=== PATIENT | female | born 1980 | race American Indian/Alaskan Native ===

== ENCOUNTER 2017-09-22 10:37 | Observation (INO) | payer MEDICARE ==
[2017-09-22 10:48] VITALS: BMI 18.4
[2017-09-22] MEDS ORDERED: Sodium Chloride 0.9% 1,000 ML IV STA ×2 (11:10→15:49)
--- NOTE | 2017-09-22 11:32 | RAD ---
HISTORY: abd pain AMS COMPARISON: No prior. FINDINGS: LUNGS: The lungs are clear. PLEURA: No significant pleural effusion identified, no pneumothorax apparent. CARDIOVASCULAR: Normal. OSSEOUS STRUCTURES: No significant abnormalities. VISUALIZED UPPER ABDOMEN: Normal. OTHER FINDINGS: None. IMPRESSION: No active disease.
[2017-09-22 12:45] LABS: BASO % 0.2 % (0.0-2.0); HEMOGLOBIN 12.1 g/dL (12.0-16.0); LYMPH # 0.7 K/uL (1.0-4.3); LYMPH % 4.1 % (20.0-40.0); MEAN CELL VOLUME 78.4 fl (81.0-99.0); MEAN CORPUSCULAR HEMOGLOBIN 25.2 pg (27.0-31.0); MEAN CORPUSCULAR HGB CONC 32.2 g/dL (33.0-37.0); MONO # 0.5 K/uL (0.0-0.8); NEUT # 16.4 K/uL (1.8-7.0); NEUT % 92.7 % (50.0-75.0); PLATELET COUNT 391 K/uL (130-400); RBC 4.78 Mil/uL (3.80-5.20); RED CELL DISTRIBUTION WIDTH 15.2 % (11.5-14.5); WHITE BLOOD COUNT 17.7 K/uL (4.8-10.8)
[2017-09-22 14:00] LABS: BASOPHIL 1 % (0-2); LYMPHOCYTE 6 % (20-50); MONOCYTE 2 % (0-10); NEUTROPHIL 91 % (42-75); TOTAL CELLS COUNTED 100
[2017-09-22 14:01] LABS: ANISOCYTOSIS SLIGHT; PLATELET ESTIMATE NORMAL (NORMAL)
[2017-09-22 14:02] LABS: OVALOCYTES SLIGHT; TEARDROP CELLS SLIGHT
[2017-09-22 14:04] LABS: INR 1.2 (0.9-1.2); PARTIAL THROMBOPLASTIN TIME 29.6 Seconds (25.6-37.1); PROTHROMBIN TIME 13.2 Seconds (9.8-13.1)
[2017-09-22 14:11] LABS: ALB/GLOB RATIO 1.3 (1.0-2.1); ALBUMIN 4.4 g/dL (3.5-5.0); ALT/SGPT 26 U/L (9-52); AST/SGOT 28 U/L (14-36); BLOOD UREA NITROGEN 7 mg/dl (7-17); CALCIUM 9.1 mg/dL (8.4-10.2); GFR AFRICAN-AMERICAN > 60; GFR NON-AFRICAN AMERICAN > 60
[2017-09-22] MEDS ORDERED: Sodium Chloride 0.9% 50 ML IV ONE (14:47)
[2017-09-22] MEDS ORDERED: Iohexol 300 100 ML IJ ONE (14:47)
--- NOTE | 2017-09-22 15:29 | ED PDOC ---
HPI: Abdomen Time Seen by Provider: 09/22/17 11:03 Chief Complaint (Nursing): Abdominal Pain Chief Complaint (Provider): Abdominal pain History Per: Family (Mother) History/Exam Limitations: no limitations Onset/Duration Of Symptoms: Days (1) Additional Complaint(s): Patient is a 36 y/o female with a past medical history of moderate mental retardation and diabetes presenting to the emergency department with her mother for abdominal pain and an episode of incontinent stool since yesterday. Per mother who is also her caregiver, patient was also noted to appear weak today and has a depressed appetite. Denies fever, vomiting, or other complaints. Of note, patient is able to toilet and feed herself but is otherwise dependent on her mother. Despite history of diabetes, patient is not currently on any medication. PCP: John Diana Past Medical History Reviewed: Historical Data, Nursing Documentation, Vital Signs Vital Signs: Last Vital Signs Temp 97.1 F L 09/23/17 07:54 Pulse 83 09/23/17 07:54 Resp 18 09/23/17 07:54 BP 100/66 09/23/17 07:54 Pulse Ox 100 09/23/17 07:54 - Medical History PMH: Diabetes Other PMH: mental retardation - Surgical History Surgical History: No Surg Hx - Family History Family History: States: Unknown Family Hx - Living Arrangements Living Arrangements: With Family (Mother) - Social History Current smoker - smoking cessation education provided: No Ex-Smoker (has not smoked in the last 12 months): No Alcohol: None Drugs: Denies - Home Medications Home Medications: Ambulatory Orders Medication Instructions Recorded Multivitamin/Iron/Folic Acid 1 tab PO DAILY 09/22/17 [Centrum Complete Multivit Tab] oxyCODONE/Acetaminophen [Percocet 1 tab PO Q4 PRN #30 tab 09/23/17 5/325 mg Tab] - Allergies Allergies/Adverse Reactions: Allergies Allergy/AdvReac Type Severity Reaction Status Date / Time No Known Allergies Allergy Verified 09/22/17 17:07 Review of Systems ROS Statement: Except As Marked, All Systems Reviewed And Found Negative Constitutional: Positive for: Weakness, Other (depressed appetite). Negative for: Fever Gastrointestinal: Positive for: Abdominal Pain. Negative for: Vomiting Physical Exam - Reviewed Nursing Documentation Reviewed: Yes Vital Signs Reviewed: Yes - Physical Exam Appears: Positive for: Uncomfortable (listless, arousable, and mildly dry- appearing) Head Exam: Positive for: ATRAUMATIC, NORMAL INSPECTION, NORMOCEPHALIC Skin: Positive for: Normal Color, Warm, Dry Eye Exam: Positive for: Normal appearance Neck: Positive for: Normal Cardiovascular/Chest: Positive for: Regular Rate, Rhythm. Negative for: Murmur Respiratory: Positive for: Normal Breath Sounds. Negative for: Accessory Muscle Use, Respiratory Distress Gastrointestinal/Abdominal: Positive for: Soft, Tenderness (diffuse abdominal tenderness) Extremity: Positive for: Normal ROM. Negative for: Pedal Edema Neurologic/Psych: Positive for: Other (neurologically developmentally delayed but does follow commands.) - Laboratory Results Result Diagrams: 09/22/17 12:30 09/22/17 13:36 - ECG O2 Sat by Pulse Oximetry: 100 (RA) Pulse Ox Interpretation: Normal Medical Decision Making Medical Decision Making: Time: 11:10 Initial impression: Abdominal pain Initial plan: CT abdominal/pelvic with IV contrast Urine drug screening ED Urine Dipstick ED Urine Normal Saline 1 L IV Urinalysis Reevaluation 11:31 Chest x-ray reviewed. Findings noted as follows: LUNGS: The lungs are clear. PLEURA: No significant pleural effusion identified, no pneumothorax apparent. CARDIOVASCULAR: Normal. OSSEOUS STRUCTURES: No significant abnormalities. VISUALIZED UPPER ABDOMEN: Normal. OTHER FINDINGS: None. IMPRESSION: No active disease. 15:29 Abdominal/pelvic CT scan reveals acute appendicitis. Other findings noted as follows: LOWER THORAX: The lung bases are clear. LIVER: Normal in size with diffuse fatty infiltration. No gross lesion or ductal dilatation. GALLBLADDER AND BILE DUCTS: There are no calcified gallstones. PANCREAS: Normal in size with homogeneous enhancement. No gross lesion or ductal dilatation. SPLEEN: Normal in size and appearance. ADRENALS: No discrete nodule. KIDNEYS AND URETERS: Normal in size with homogeneous enhancement. No hydronephrosis. No solid mass. VASCULATURE: Unremarkable. No aortic aneurysm. BOWEL: The small bowel loops are normal in caliber. There is large amount of stool in the colon. No bowel dilatation or obstruction. APPENDIX: The appendix is distended fluid-filled and measures 12 mm in diameter, there is an appendicolith in the mid appendix and mild wall enhancement with inflammatory changes in the surrounding right lower quadrant fat. No evidence of perforation or abscess. PERITONEUM: No free fluid. No free air. LYMPH NODES: No enlarged lymph nodes. BLADDER: Well distended and normal in appearance. REPRODUCTIVE: The uterus is normal in size and there is fluid in the endometrial cavity. There is a 2.8 cm simple cyst in the left ovary. BONES: No acute fracture. Within normal limits for the patient's age. OTHER FINDINGS: None. IMPRESSION: Acute appendicitis. No perforation or abscess. Constipation. No evidence of bowel obstruction. Fatty liver. 15:[address] Velázquez (Medicine) who agrees to admit patient. 15:50 Spoke with the certified surgical technician and attending Dr. Wild. Family was also updated in regards to diagnosis and plan of care. Admit to medicine, for OR soon. Abx initiated. Scribe Attestation: Documented by Ly Dubose, acting as a scribe for Del Montiel DO. Provider Scribe Attestation: All medical record entries made by the Scribe were at my direction and personally dictated by me. I have reviewed the chart and agree that the record accurately reflects my personal performance of the history, physical exam, medical decision making, and the department course for this patient. I have also personally directed, reviewed, and agree with the discharge instructions and disposition. Disposition - Clinical Impression Clinical Impression: Acute appendicitis - Patient ED Disposition Is Patient to be Admitted: Yes - Disposition Disposition Time: 14:30 Condition: GUARDED - Pt Status Changed To: Hospital Disposition Of: Inpatient (history of mental retardation in addition to acute appendicitis- anticipate longer hospital stay) - Admit Certification Admit to Inpatient:: After my assessment, the patient will require hospitalization for at least two midnights. This is because of the severity of symptoms shown, intensity of services needed, and/or the medical risk in this patient being treated as an outpatient.
--- NOTE | 2017-09-22 15:31 | CT ---
PROCEDURE: CT Abdomen and Pelvis with contrast HISTORY: Abdominal pain COMPARISON: None. TECHNIQUE: CT scan of the abdomen and pelvis was performed after intravenous administration of contrast. Oral contrast was not administered. Coronal and sagittal reformatted images were obtained. Contrast dose: 95 cc Omnipaque 300 Radiation dose: Total exam DLP = 351.77 mGy-cm. This CT exam was performed using one or more of the following dose reduction techniques: Automated exposure control, adjustment of the mA and/or kV according to patient size, and/or use of iterative reconstruction technique. FINDINGS: LOWER THORAX: The lung bases are clear. LIVER: Normal in size with diffuse fatty infiltration. No gross lesion or ductal dilatation. GALLBLADDER AND BILE DUCTS: There are no calcified gallstones. PANCREAS: Normal in size with homogeneous enhancement. No gross lesion or ductal dilatation. SPLEEN: Normal in size and appearance. ADRENALS: No discrete nodule. KIDNEYS AND URETERS: Normal in size with homogeneous enhancement. No hydronephrosis. No solid mass. VASCULATURE: Unremarkable. No aortic aneurysm. BOWEL: The small bowel loops are normal in caliber. There is large amount of stool in the colon. No bowel dilatation or obstruction. APPENDIX: The appendix is distended fluid-filled and measures 12 mm in diameter, there is an appendicolith in the mid appendix and mild wall enhancement with inflammatory changes in the surrounding right lower quadrant fat. No evidence of perforation or abscess. PERITONEUM: No free fluid. No free air. LYMPH NODES: No enlarged lymph nodes. BLADDER: Well distended and normal in appearance. REPRODUCTIVE: The uterus is normal in size and there is fluid in the endometrial cavity. There is a 2.8 cm simple cyst in the left ovary. BONES: No acute fracture. Within normal limits for the patient's age. OTHER FINDINGS: None. IMPRESSION: Acute appendicitis. No perforation or abscess. Constipation. No evidence of bowel obstruction. Fatty liver.
[2017-09-22] MEDS ORDERED: Piperacillin/Tazobact 3.375 GM in Sodium Chloride 0.9% 100 ML IVPB STA (15:39)
[2017-09-22] MEDS ORDERED: Propofol 10 mg/ml Inj (20 ML) ONE (16:31)
[2017-09-22] MEDS ORDERED: Midazolam 2 MG/2 ML VIAL ONE (16:31)
[2017-09-22] MEDS ORDERED: Succinylcholine 200 mg/10 ml Inj IV ONE (16:32)
[2017-09-22] MEDS ORDERED: Neostigmine Methylsulfate 2 MG/2 ML ML IV ONE (16:33)
[2017-09-22] MEDS ORDERED: Lidocaine 4% (Laryng-O-Jet) Kit MM ONE (16:33)
[2017-09-22] MEDS ORDERED: Rocuronium 10 mg/ml (5 ml) ONE (16:34)
[2017-09-22] MEDS ORDERED: Bupivacaine 0.5% Inj(30mL) ONE (16:52)
[2017-09-22] MEDS ORDERED: Lidocaine 1% Inj (20ml) ONE (16:52)
[2017-09-22] MEDS ORDERED: ceFAZolin IV 1 gm in Dextrose 0 GM/0 ML BAG IVPB ONE (16:52)
--- NOTE | 2017-09-22 17:47 | CP.PCM.CON ---
History of Present Illness - History of Present Illness History of Present Illness: General Surgery Dr. Wild 36 y/o F w/ PMHx of MR and NIDDM 2 presents to the ED c/o abd pain. Per mother present at bedside, woke up this AM w/ diffuse abd pain. Pt took some Pepto bismol in an attempt to relieve pain. Shortly after, pt developed NBNB vomiting. Mother brought pt to the ED when pain continued to worsen. Mother admits to pt fatigue and decreased appetite. Mother denies F/C, D/C. CT abd/ pelivs taken while pt in the ED revealed acute appendicitis. The pt is able to toilet and feed herself but is otherwise dependent on her mother. Pt mother is the legal caregiver. PMHx: NIDDM2 Meds: multivitamin NKDA PSHx: denies SHx: denies tobacco, EtOH, drug use. FHx: denies Review of Systems - Review of Systems Systems not reviewed;Unavailable: Other (MR, refused to answer questions) Past Patient History - Past Medical History & Family History Past Medical History?: Yes - Past Social History Alcohol: None Drugs: Denies - ENDOCRINE/METABOLIC Hx Diabetes Mellitus Type 2: Yes - PSYCHIATRIC Hx Substance Use: No - SURGICAL HISTORY Hx Surgeries: No - ANESTHESIA Hx Anesthesia: No Meds Allergies/Adverse Reactions: Allergies Allergy/AdvReac Type Severity Reaction Status Date / Time No Known Allergies Allergy Verified 09/22/17 17:07 - Medications Medications: Current Medications Sodium Chloride (Sodium Chloride 0.9%) 1,000 mls @ 150 mls/hr IV .Q6H40M STA Stop: 09/22/17 22:28 Last Admin: 09/22/17 16:00 Dose: 150 mls/hr Physical Exam - Constitutional Appears: No Acute Distress, Other (uncomfortable) - Head Exam Head Exam: NORMAL INSPECTION - Eye Exam Eye Exam: Normal appearance - ENT Exam ENT Exam: Mucous Membranes Moist - Respiratory Exam Respiratory Exam: NORMAL BREATHING PATTERN. absent: Accessory Muscle Use, Respiratory Distress - Cardiovascular Exam Cardiovascular Exam: absent: Bradycardia, Tachycardia - GI/Abdominal Exam GI & Abdominal Exam: Soft, Tenderness. absent: Distended, Guarding, Rebound, Rigid - Expanded GI/Abdominal Exam Expanded Expanded GI & Abdominal Exam: Rovsing's Sign - Extremities Exam Extremities exam: Positive for: normal inspection - Neurological Exam Neurological exam: Alert - Psychiatric Exam Psychiatric exam: Normal Affect, Normal Mood - Skin Skin Exam: Dry, Intact, Normal Color, Warm Results - Vital Signs Recent Vital Signs: Last Vital Signs Temp 99 F 09/22/17 17:07 Pulse 107 H 09/22/17 17:07 Resp 14 09/22/17 17:07 BP 107/62 09/22/17 17:07 Pulse Ox 100 09/22/17 17:07 - Labs Result Diagrams: 09/22/17 12:30 09/22/17 13:36 Labs: Laboratory Results - last 24 hr 09/22/17 09/22/17 09/22/17 12:30 13:36 13:36 WBC 17.7 H RBC 4.78 Hgb 12.1 Hct 37.5 MCV 78.4 L MCH 25.2 L MCHC 32.2 L RDW 15.2 H Plt Count 391 MPV 8.0 Neut % (Auto) 92.7 H Lymph % (Auto) 4.1 L [place] % (Auto) 3.0 Eos % (Auto) 0.0 Baso % (Auto) 0.2 Neut # 16.4 H Lymph # 0.7 L [place] # 0.5 Eos # 0.0 Baso # 0.0 Neutrophils % (Manual) 91 H Lymphocytes % (Manual) 6 L Monocytes % (Manual) 2 Basophils % (Manual) 1 Platelet Estimate Normal Anisocytosis (manual) Slight Tear Drop Cells Slight Ovalocytes Slight PT 13.2 H INR 1.2 APTT 29.6 Sodium 139 Potassium 4.8 Chloride 104 Carbon Dioxide 25 Anion Gap 14 BUN 7 Creatinine 0.6 L Est GFR ( Amer) > 60 Est GFR (Non-Af Amer) > 60 Random Glucose 130 H Calcium 9.1 Total Bilirubin 0.5 AST 28 ALT 26 Alkaline Phosphatase 76 Total Protein 7.9 Albumin 4.4 Globulin 3.5 Albumin/Globulin Ratio 1.3 - Imaging and Cardiology CT scan - abdomen Status: Image reviewed by me, Report reviewed by me Assessment & Plan - Assessment and Plan (Free Text) Assessment: 36 y/o F w/ MR, found to have acute appendicitis on CT - IV Abx - NPO, IVF - pain management - anti-emetic - OR today for laparoscopic appendectomy - consent obtained from Mother, pt's legal guardian. discussed risks and benefits of surgery. offered opportunity for questions all of which were answered. - f/u AM labs - Incentive spirometer post-op Pt discussed w/ Dr. Junito Heath DO PGY2
[2017-09-22] MEDS ORDERED: Sodium Chloride 0.9% 1,000 ML IV ONE (18:08)
[2017-09-22] MEDS ORDERED: Phenylephrine 10 mg/ml Inj ONE (18:26)
[2017-09-22] MEDS ORDERED: Bupivacaine 0.5% 50 ML IJ ONE (18:50)
[2017-09-22] MEDS ORDERED: Oxycodone/Acetaminophen 5/325 mg Tab PO PRN (18:59)
[2017-09-22] MEDS ORDERED: Sodium Chloride 0.9% 1,000 ML IV SCH (19:00)
[2017-09-22] MEDS ORDERED: HYDROmorphone 0.5 mg/0.5 ml ISec IVP PRN (19:00)
--- NOTE | 2017-09-22 19:03 | PCM.SURG1 ---
Surgeon's Initial Post Op Note - Surgeon's Notes Surgeon: Dr. Wild Upholstery Bundler: Dr. Heath PGY2, Dr. Gifford PGY1 Type of Anesthesia: General Endo Pre-Operative Diagnosis: acute appendicitis Operative Findings: see dictation Post-Operative Diagnosis: same Operation Performed: laparoscopic appendectomy Specimen/Specimens Removed: appendix Estimated Blood Loss: EBL {In ML}: 5 Drains Used: No Drains Post-Op Condition: Good Date of Surgery/Procedure: 09/22/17 Time of Surgery/Procedure: 18:00
--- NOTE | 2017-09-22 19:22 | CP.PCM.HP ---
History of Present Illness - History of Present Illness History of Present Illness: A 36 year old female with history of mental retardation came for abdominal pain and vomiting this morning. She had a stool incontinence yesterday. Her mother who is a home care associate gave her Peptobismol, but she threw it up too today. She has had diabetes and hypertension and used to take medicines for them, but it became better and her primary doctor, Dr. Lantigua took them off. Otherwise: (-) fever, (-) shortness of breath, (-) chest pain Present on Admission - Present on Admission Any Indicators Present on Admission: No History of DVT/PE: No History of Uncontrolled Diabetes: No Urinary Catheter: No Decubitus Ulcer Present: No Review of Systems - EENT Eyes: absent: Change in Vision - Cardiovascular Cardiovascular: absent: Chest Pain - Respiratory Respiratory: absent: Cough, Dyspnea - Gastrointestinal Gastrointestinal: Abdominal Pain, Nausea, Vomiting - Genitourinary Genitourinary: absent: Dysuria Past Patient History - Past Medical History & Family History Past Medical History?: Yes - Past Social History Alcohol: None Drugs: Denies - ENDOCRINE/METABOLIC Hx Diabetes Mellitus Type 2: Yes - PSYCHIATRIC Hx Substance Use: No - SURGICAL HISTORY Hx Surgeries: No - ANESTHESIA Hx Anesthesia: No Meds Allergies/Adverse Reactions: Allergies Allergy/AdvReac Type Severity Reaction Status Date / Time No Known Allergies Allergy Verified 09/22/17 17:07 Physical Exam - Constitutional Appears: Non-toxic - Respiratory Exam Respiratory Exam: Clear to Auscultation Bilateral - Cardiovascular Exam Cardiovascular Exam: REGULAR RHYTHM. absent: Systolic Murmur - GI/Abdominal Exam GI & Abdominal Exam: Soft, Tenderness (diffuse) Results - Vital Signs Recent Vital Signs: Last Vital Signs Temp 98.5 F 09/22/17 19:00 Pulse 100 H 09/22/17 19:00 Resp 20 09/22/17 19:00 BP 152/78 H 09/22/17 19:00 Pulse Ox 100 09/22/17 19:00 - Labs Result Diagrams: 09/22/17 12:30 09/22/17 13:36 Labs: Laboratory Results - last 24 hr 09/22/17 09/22/17 09/22/17 12:30 13:36 13:36 WBC 17.7 H RBC 4.78 Hgb 12.1 Hct 37.5 MCV 78.4 L MCH 25.2 L MCHC 32.2 L RDW 15.2 H Plt Count 391 MPV 8.0 Neut % (Auto) 92.7 H Lymph % (Auto) 4.1 L [place] % (Auto) 3.0 Eos % (Auto) 0.0 Baso % (Auto) 0.2 Neut # 16.4 H Lymph # 0.7 L [place] # 0.5 Eos # 0.0 Baso # 0.0 Neutrophils % (Manual) 91 H Lymphocytes % (Manual) 6 L Monocytes % (Manual) 2 Basophils % (Manual) 1 Platelet Estimate Normal Anisocytosis (manual) Slight Tear Drop Cells Slight Ovalocytes Slight PT 13.2 H INR 1.2 APTT 29.6 Sodium 139 Potassium 4.8 Chloride 104 Carbon Dioxide 25 Anion Gap 14 BUN 7 Creatinine 0.6 L Est GFR ( Amer) > 60 Est GFR (Non-Af Amer) > 60 Random Glucose 130 H Calcium 9.1 Total Bilirubin 0.5 AST 28 ALT 26 Alkaline Phosphatase 76 Total Protein 7.9 Albumin 4.4 Globulin 3.5 Albumin/Globulin Ratio 1.3 Serum HCG, Qual 09/22/17 14:00 WBC RBC Hgb Hct MCV MCH MCHC RDW Plt Count MPV Neut % (Auto) Lymph % (Auto) [place] % (Auto) Eos % (Auto) Baso % (Auto) Neut # Lymph # [place] # Eos # Baso # Neutrophils % (Manual) Lymphocytes % (Manual) Monocytes % (Manual) Basophils % (Manual) Platelet Estimate Anisocytosis (manual) Tear Drop Cells Ovalocytes PT INR APTT Sodium Potassium Chloride Carbon Dioxide Anion Gap BUN Creatinine Est GFR ( Amer) Est GFR (Non-Af Amer) Random Glucose Calcium Total Bilirubin AST ALT Alkaline Phosphatase Total Protein Albumin Globulin Albumin/Globulin Ratio Serum HCG, Qual Negative Assessment & Plan - Assessment and Plan (Free Text) Assessment: Acute appendicitis CT abdomen showed acute appendicitis Plan: laparoscopic appendectomy post-op care - Date & Time Date: 09/22/17 Time: 19:23 Decision To Admit - . Bed Request Type: Med/Surg Admitting Physician: Maria T Velázquez
[2017-09-22] MEDS ORDERED: HYDROmorphone 0.5 mg/0.5 ml ISec ONE (19:24)
[2017-09-22] MEDS ORDERED: HYDROmorphone 0.5 mg/0.5 ml ISec IVP ONE (19:25)
[2017-09-22] MEDS: Piperacillin/Tazobact 3.375 GM in Sodium Chloride 0.9% 100 ML IVPB SCH (21:20)
[2017-09-23 02:02] VITALS: O2SAT 100
[2017-09-23] MEDS: Piperacillin/Tazobact 3.375 GM in Sodium Chloride 0.9% 100 ML IVPB SCH ×2 (03:47→10:14)
[2017-09-23] MEDS: Insulin Lispro (humaLOG) 100 Units/ml Inj SC SCH ×2 (06:42→12:34)
--- NOTE | 2017-09-23 07:35 | CP.PCM.PN ---
Subjective - Date & Time of Evaluation Date of Evaluation: 09/23/17 Time of Evaluation: 07:33 - Subjective Subjective: no abdominal pain no nausea POD#1 appendectomy Objective - Vital Signs/Intake and Output Vital Signs (last 24 hours): Temp Pulse Resp BP Pulse Ox 98 F 102 H 19 109/70 100 09/23/17 01:01 09/23/17 01:01 09/23/17 01:01 09/23/17 01:01 09/23/17 01:01 Intake and Output: 09/23/17 09/23/17 06:59 18:59 Intake Total 300 Output Total 200 Balance 100 - Medications Medications: Current Medications Acetaminophen (Tylenol 325mg Tab) 650 mg PO Q6 PRN PRN Reason: Pain, Mild (1-3) Hydromorphone HCl (Dilaudid) 0.5 mg IVP Q3 PRN PRN Reason: Pain, severe (8-10) Piperacillin Sod/Tazobactam (Sod 3.375 gm/ Sodium Chloride) 100 mls @ 100 mls/ hr IVPB Q6 GERARDO PRN Reason: Protocol Last Admin: 09/23/17 03:47 Dose: 100 mls/hr Sodium Chloride (Sodium Chloride 0.9%) 1,000 mls @ 100 mls/hr IV .Q10H GERARDO Last Admin: 09/23/17 06:00 Dose: Not Given Insulin Human Lispro (Humalog) 0 units SC [facility] G[facility]ARDO PRN Reason: Protocol Last Admin: 09/23/17 06:42 Dose: Not Given Ondansetron HCl (Zofran Inj) 4 mg IVP Q4 PRN PRN Reason: Nausea/Vomiting Oxycodone/Acetaminophen (Percocet 5/325 Mg Tab) 1 tab PO Q4 PRN PRN Reason: Pain, moderate (4-7) Stop: 09/25/17 19:00 - Labs Labs: 09/22/17 12:30 09/22/17 13:36 PT 13.2 Seconds (9.8-13.1) H 09/22/17 13:36 INR 1.2 (0.9-1.2) 09/22/17 13:36 APTT 29.6 Seconds (25.6-37.1) 09/22/17 13:36 - Constitutional Appears: No Acute Distress - Respiratory Exam Respiratory Exam: Clear to Ausculation Bilateral, NORMAL BREATHING PATTERN - Cardiovascular Exam Cardiovascular Exam: REGULAR RHYTHM. absent: Murmur - GI/Abdominal Exam GI & Abdominal Exam: Soft. absent: Tenderness (bandages on lower abdomen) Assessment and Plan - Assessment and Plan (Free Text) Assessment: s/p appendectomy on iv Zosyn MR history of DM, HTN Plan: ambulation postop care D/C plan as per surgery
[2017-09-23 07:54] VITALS: BP 100/66; PULSE 83; RESP 18; TEMP 97.1
--- NOTE | 2017-09-23 11:02 | CP.PCM.PN ---
<IvanaMadeleine - Last Filed: 09/23/17 11:00> Subjective - Date & Time of Evaluation Date of Evaluation: 09/23/17 Time of Evaluation: 10:00 - Subjective Subjective: General Surgery Dr. Avalos (covering Dr. Wild) Pt S&E @bedside. NAEO. pt underwent laparoscopic appendectomy last evening. Pt tolerated the procedure well w/ no complications. Pt has no complaints this AM. Pt admits to mild abd pain but states much improved from yesterday. Pt denies F/ C, N/V and tolerating regular diet. Objective - Vital Signs/Intake and Output Vital Signs (last 24 hours): Temp Pulse Resp BP Pulse Ox 97.1 F L 83 18 100/66 100 09/23/17 07:54 09/23/17 07:54 09/23/17 07:54 09/23/17 07:54 09/23/17 07:54 Intake and Output: 09/23/17 09/23/17 06:59 18:59 Intake Total 300 Output Total 200 Balance 100 - Medications Medications: Current Medications Acetaminophen (Tylenol 325mg Tab) 650 mg PO Q6 PRN PRN Reason: Pain, Mild (1-3) Hydromorphone HCl (Dilaudid) 0.5 mg IVP Q3 PRN PRN Reason: Pain, severe (8-10) Piperacillin Sod/Tazobactam (Sod 3.375 gm/ Sodium Chloride) 100 mls @ 100 mls/ hr IVPB Q6 GERARDO PRN Reason: Protocol Last Admin: 09/23/17 10:14 Dose: 100 mls/hr Sodium Chloride (Sodium Chloride 0.9%) 1,000 mls @ 100 mls/hr IV .Q10H [facility] Last Admin: 09/23/17 06:00 Dose: Not Given Insulin Human Lispro (Humalog) 0 units SC [facility]ARDO PRN Reason: Protocol Last Admin: 09/23/17 06:42 Dose: Not Given Ondansetron HCl (Zofran Inj) 4 mg IVP Q4 PRN PRN Reason: Nausea/Vomiting Oxycodone/Acetaminophen (Percocet 5/325 Mg Tab) 1 tab PO Q4 PRN PRN Reason: Pain, moderate (4-7) Stop: 09/25/17 19:00 - Labs Labs: 09/22/17 12:30 09/22/17 13:36 PT 13.2 Seconds (9.8-13.1) H 09/22/17 13:36 INR 1.2 (0.9-1.2) 09/22/17 13:36 APTT 29.6 Seconds (25.6-37.1) 09/22/17 13:36 - Constitutional Appears: Non-toxic, No Acute Distress - Head Exam Head Exam: NORMAL INSPECTION - Eye Exam Eye Exam: Normal appearance - ENT Exam ENT Exam: Mucous Membranes Moist - Respiratory Exam Respiratory Exam: NORMAL BREATHING PATTERN. absent: Accessory Muscle Use, Respiratory Distress - Cardiovascular Exam Cardiovascular Exam: absent: Bradycardia, Tachycardia - GI/Abdominal Exam GI & Abdominal Exam: Soft, Tenderness (appropriate TTP RLQ). absent: Distended , Firm, Guarding, Rigid, Rebound Additional comments: dressings C/D/I - Extremities Exam Extremities Exam: Normal Inspection - Neurological Exam Neurological Exam: Alert, Awake, Oriented x3 - Psychiatric Exam Psychiatric exam: Normal Affect, Normal Mood - Skin Skin Exam: Dry, Intact, Normal Color, Warm Assessment and Plan - Assessment and Plan (Free Text) Assessment: 36 y/o F POD#1 s/p lap appy - pain well controlled - ADAT - pt cleared for discharge to home - script for pain medication placed in chart - pt instructed to follow up with Dr. Wild in office in 7-10days Pt seen and discussed w/ Dr. Bailey Heath DO PGY2 <Shree Avalos - Last Filed: 09/23/17 11:18> Subjective - Subjective Subjective: Patient was seen and examined at the bedside. Agree with resident's note above. Objective - Vital Signs/Intake and Output Vital Signs (last 24 hours): Temp Pulse Resp BP Pulse Ox 97.1 F L 83 18 100/66 100 09/23/17 07:54 09/23/17 07:54 09/23/17 07:54 09/23/17 07:54 09/23/17 07:54 Intake and Output: 09/23/17 09/23/17 06:59 18:59 Intake Total 300 Output Total 200 Balance 100 - Medications Medications: Current Medications Acetaminophen (Tylenol 325mg Tab) 650 mg PO Q6 PRN PRN Reason: Pain, Mild (1-3) Hydromorphone HCl (Dilaudid) 0.5 mg IVP Q3 PRN PRN Reason: Pain, severe (8-10) Piperacillin Sod/Tazobactam (Sod 3.375 gm/ Sodium Chloride) 100 mls @ 100 mls/ hr IVPB Q6 GERARD[facility] PRN Reason: Protocol Last Admin: 09/23/17 10:14 Dose: 100 mls/hr Sodium Chloride (Sodium Chloride 0.9%) 1,000 mls @ 100 mls/hr IV .Q10H [facility] Last Admin: 09/23/17 06:00 Dose: Not Given Insulin Human Lispro (Humalog) 0 units SC [facility] PRN Reason: Protocol Last Admin: 09/23/17 06:42 Dose: Not Given Ondansetron HCl (Zofran Inj) 4 mg IVP Q4 PRN PRN Reason: Nausea/Vomiting Oxycodone/Acetaminophen (Percocet 5/325 Mg Tab) 1 tab PO Q4 PRN PRN Reason: Pain, moderate (4-7) Stop: 09/25/17 19:00 - Labs Labs: 09/22/17 12:30 09/22/17 13:36 PT 13.2 Seconds (9.8-13.1) H 09/22/17 13:36 INR 1.2 (0.9-1.2) 09/22/17 13:36 APTT 29.6 Seconds (25.6-37.1) 09/22/17 13:36
--- NOTE | 2017-10-04 11:01 | CP.PCM.DIS ---
Provider - Provider Date of Admission: 09/22/17 15:48 Attending physician: Maria T Velázquez MD Primary care physician: A 36 year old female with history of mental retardation came for abdominal pain and vomiting this morning. She had a stool incontinence yesterday. Her mother who is a healthcare analyst gave her Peptobismol, but she threw it up too today. She has had diabetes and hypertension and used to take medicines for them, but it became better and her primary doctor, Dr. Lantigua took them off. Otherwise: (-) fever, (-) shortness of breath, (-) chest pain Patient had a laparoscopic appendectomy. Time Spent in preparation of Discharge (in minutes): 30 Diagnosis - Discharge Diagnosis (1) Acute appendicitis Status: Acute Hospital Course - Lab Results Lab Results: Most Recent Lab Values WBC 17.7 K/uL (4.8-10.8) H 09/22/17 12:30 RBC 4.78 Mil/uL (3.80-5.20) 09/22/17 12:30 Hgb 12.1 g/dL (12.0-16.0) 09/22/17 12:30 Hct 37.5 % (34.0-47.0) 09/22/17 12:30 MCV 78.4 fl (81.0-99.0) L 09/22/17 12:30 MCH 25.2 pg (27.0-31.0) L 09/22/17 12:30 MCHC 32.2 g/dL (33.0-37.0) L 09/22/17 12:30 RDW 15.2 % (11.5-14.5) H 09/22/17 12:30 Plt Count 391 K/uL (130-400) 09/22/17 12:30 MPV 8.0 fl (7.2-11.7) 09/22/17 12:30 Neut % (Auto) 92.7 % (50.0-75.0) H 09/22/17 12:30 Lymph % (Auto) 4.1 % (20.0-40.0) L 09/22/17 12:30 [place] % (Auto) 3.0 % (0.0-10.0) 09/22/17 12:30 Eos % (Auto) 0.0 % (0.0-4.0) 09/22/17 12:30 Baso % (Auto) 0.2 % (0.0-2.0) 09/22/17 12:30 Neut # 16.4 K/uL (1.8-7.0) H 09/22/17 12:30 Lymph # 0.7 K/uL (1.0-4.3) L 09/22/17 12:30 [place]away # 0.5 K/uL (0.0-0.8) 09/22/17 12:30 Eos # 0.0 K/uL (0.0-0.7) 09/22/17 12:30 Baso # 0.0 K/uL (0.0-0.2) 09/22/17 12:30 Neutrophils % (Manual) 91 % (42-75) H 09/22/17 12:30 Lymphocytes % (Manual) 6 % (20-50) L 09/22/17 12:30 Monocytes % (Manual) 2 % (0-10) 09/22/17 12:30 Basophils % (Manual) 1 % (0-2) 09/22/17 12:30 Platelet Estimate Normal (NORMAL) 09/22/17 12:30 Anisocytosis (manual) Slight 09/22/17 12:30 Tear Drop Cells Slight 09/22/17 12:30 Ovalocytes Slight 09/22/17 12:30 PT 13.2 Seconds (9.8-13.1) H 09/22/17 13:36 INR 1.2 (0.9-1.2) 09/22/17 13:36 APTT 29.6 Seconds (25.6-37.1) 09/22/17 13:36 Sodium 139 mmol/l (132-148) 09/22/17 13:36 Potassium 4.8 MMOL/L (3.6-5.0) 09/22/17 13:36 Chloride 104 mmol/L (98-107) 09/22/17 13:36 Carbon Dioxide 25 mmol/L (22-30) 09/22/17 13:36 Anion Gap 14 (10-20) 09/22/17 13:36 BUN 7 mg/dl (7-17) 09/22/17 13:36 Creatinine 0.6 mg/dL (0.7-1.2) L 09/22/17 13:36 Est GFR ( Amer) > 60 09/22/17 13:36 Est GFR (Non-Af Amer) > 60 09/22/17 13:36 POC Glucose (mg/dL) 138 mg/dL (65-110) H 09/23/17 15:36 Random Glucose 130 mg/dL (65-105) H 09/22/17 13:36 Hemoglobin A1c 5.2 % (4.2-6.5) 09/23/17 06:35 Calcium 9.1 mg/dL (8.4-10.2) 09/22/17 13:36 Total Bilirubin 0.5 mg/dl (0.2-1.3) 09/22/17 13:36 AST 28 U/L (14-36) 09/22/17 13:36 ALT 26 U/L (9-52) 09/22/17 13:36 Alkaline Phosphatase 76 U/L (38-126) 09/22/17 13:36 Total Protein 7.9 G/DL (6.3-8.2) 09/22/17 13:36 Albumin 4.4 g/dL (3.5-5.0) 09/22/17 13:36 Globulin 3.5 gm/dL (2.2-3.9) 09/22/17 13:36 Albumin/Globulin Ratio 1.3 (1.0-2.1) 09/22/17 13:36 Serum HCG, Qual Negative (NEGATIVE) 09/22/17 14:00 - Hospital Course Hospital Course: patient improved after appendectomy was discharged next day. - Date & Time of H&P Date of H&P: 10/04/17 Time of H&P: 11:00 Discharge Exam - Head Exam Head Exam: ATRAUMATIC, NORMAL INSPECTION, NORMOCEPHALIC Discharge Plan - Discharge Medications Prescriptions: oxyCODONE/Acetaminophen [Percocet 5/325 mg Tab] 1 tab PO Q4 PRN #30 tab PRN Reason: Pain, Moderate (4-7) - Follow Up Plan Condition: GUARDED Disposition: HOME/ ROUTINE Instructions: Laparoscopic Appendectomy (DC) Additional Instructions: pt. cleared for discharge to home today by and f/u with in 7-10 days f/u with pmd in 1 week cont. percocet prn for pain Referrals: Jermaine Wild MD [Staff Provider] - Sharon Lantigua MD [Family Provider] -
--- NOTE | 2017-11-11 21:04 | OP ---
PROCEDURE DATE: 09/22/2017 PROCEDURE: Laparoscopic appendectomy. SURGEON: Jermaine Wild MD. HEAD MVA REACTOR OPERATOR: Dr. Heath. TYPE OF ANESTHESIA: General anesthesia. PREOPERATIVE DIAGNOSIS: Acute appendicitis. POSTOPERATIVE DIAGNOSIS: Acute appendicitis. OPERATIVE FINDINGS: Acute appendicitis. ESTIMATED BLOOD LOSS: 5 mL. DESCRIPTION OF PROCEDURE: The patient was taken to the operating room and placed supine on the operating room table. After induction of general anesthesia, a Candelario catheter was placed to decompress the bladder and the abdomen was prepped and draped in the standard surgical fashion. A Veress needle was inserted into the abdomen and the abdomen was insufflated. Once the abdomen was insufflated, a 5 mm trocar was placed through the umbilicus and a diagnostic laparoscopy was performed. The diagnostic laparoscopy revealed inflammation in the right lower quadrant. The patient was then placed into the Trendelenburg and left side down position, and a 5 mm suprapubic trocar as well as a 12 mm left-sided trocar were placed under direct vision. The appendix was then found at the base of the cecum, grasped, and pulled upwards. A window was made in the mesoappendix using the [place] dissector. Once the window was made in the mesoappendix, the Endo-ALYCE was fired across the appendix and the base of the appendix and cecum were severed. A second firing of the Endo-ALYCE using a vascular load was used to fire across the mesoappendix. Once the mesoappendix was severed, the appendix was placed into an EndoCatch bag. The patient then returned to the flat position. The area was inspected for hemostasis and there was no evidence of bleeding. The right lower quadrant was copiously irrigated and the irrigant was removed. The appendix was then removed via the 12 mm trocar site and the 12 mm trocar and the 5 mm trocars were removed under direct vision. The fascia of the 12 mm trocar site was reapproximated using #0 Vicryl and the skin incisions were closed using #4-0 Monocryl. The patient was then awakened from general anesthesia. The Candelario catheter was removed. Sponges, instruments, and needle counts were all correct at the end of the case. Jermaine Wild MD
== END 2017-09-23 16:00 | disposition home or self-care (01) ==
LOC: H.ER 10:37 → H.ERHOLD 15:48 → INTOOBSV 15:48 → H.MEDSURG1 21:44
PROVIDERS: ADMIT Internal Medicine; ATTEND Internal Medicine
DX: K35.80 Unspecified acute appendicitis (principal); F71 Moderate intellectual disabilities; K76.0 Fatty (change of) liver, not elsewhere classified; E11.9 Type 2 diabetes mellitus without complications; K59.00 Constipation, unspecified
CPT/HCPCS: 36415; 44970; 71010; 74177; 80053; 81025; 82948; 83036; 84703; 85025; 85610; 85730; 88304; 96361; 96365; 96366; 96375; 99285; G0378; J0330; J1170; J1885; J2250; J2370; J2543; J2704; J2710; J2765; J3010; J7040; Q9967